=== PATIENT | female | born 1985 | race Caucasian/White ===

== ENCOUNTER 2017-12-10 22:23 | Emergency (ER) | payer BC ==
[2017-12-10] MEDS: DEXAMETHASONE 10 MG/ML 1 ML INJ IV (22:48)
[2017-12-10] MEDS: LORAZEPAM 2 MG INJ IV (22:48)
[2017-12-10] MEDS: SOD CHLORIDE 0.9% 1,000 ML IV (22:49)
[2017-12-10] MEDS: AMPICILLIN/SULB 3 GM/NS (PMX) 100 ML IVPB (23:17)
== END 2017-12-11 00:46 | disposition home or self-care (01) ==
LOC: E/R 12-11 00:46
DX: J35.03 Chronic tonsillitis and adenoiditis (principal); S60.221A Contusion of right hand, initial encounter; X58.XXXA Exposure to other specified factors, initial encounter; Y92.9 Unspecified place or not applicable
CPT/HCPCS: 71045; 73130-RT; 81025; 96374; 96375; 99284-25